=== PATIENT | male | born 1955 | race Caucasian/White ===

== ENCOUNTER 2021-02-20 16:29 | Inpatient (IN) | payer OTHER, SELFPAY ==
[~2021-02-20] VITALS: Ht 180.3 cm; Wt 70.7 kg
[2021-02-20 17:46] LABS: MEAN CORPUSCULAR HEMOGLOBIN 28.9 pg (27.5-34.5); MEAN CORPUSCULAR HGB CONC 34.4 g/dL (33.2-36.2); MEAN PLATELET VOLUME 6.2 fL (7.4-10.4); PLATELET COUNT 67 x10^3/uL (130-400); RED BLOOD COUNT 3.11 x10^6/uL (4.38-5.82); RED CELL DISTRIBUTION WIDTH 15.1 % (9.4-14.8)
--- NOTE | 2021-02-20 17:48 | NUR ---
requested records from [facility]
[2021-02-20 17:56] LABS: ALANINE AMINOTRANSFERASE 19 U/L (12-78); ALBUMIN 3.2 g/dL (3.4-5.0); ANION GAP 7 mmol/L (5-15); CALCIUM 8.3 mg/dL (8.5-10.1); CHLORIDE 109 mmol/L (98-107)
[2021-02-20 17:58] LABS: ALKALINE PHOSPHATASE 88 U/L (45-117); BILIRUBIN,TOTAL 0.4 mg/dL (0.2-1.0); TOTAL PROTEIN 6.7 g/dL (6.4-8.2)
[2021-02-20] MEDS ORDERED: SODIUM CHLORIDE FLUSH 10ML SYR IVF ONE (18:00)
[2021-02-20 18:45] LABS: MICROSCOPIC AUTO
[2021-02-20 18:58] LABS: EOS#(MANUAL) 0.22 x10^3/uL (0.0-0.4); EOS% (MANUAL) 5 % (1-7); LYMPH#(MANUAL) 2.46 x10^3/uL (1-3.4); LYMPHS% (MANUAL) 56 % (22-44); MONOS#(MANUAL) 0.26 x10^3/uL (0.3-2.7); MONOS% (MANUAL) 6 % (2-9); SEG#(MANUAL) 1.45 x10^3/uL (1.8-6.8); SEGS% (MANUAL) 33 % (42-75)
[2021-02-20 18:59] LABS: ANISOCYTOSIS 1+; HYPOCHROMIA 1+
[2021-02-20 19:00] LABS: <PLATELET ESTIMATE> DECREASED
[2021-02-20 19:01] LABS: SMALL PLATELETS 1+
[2021-02-20 20:14] VITALS: BP 121/80
[2021-02-20] MEDS ORDERED: ACET325C6 PO (21:52)
[2021-02-20] MEDS ORDERED: MELATONIN 5 MG TABLET PO PRN (22:00)
[2021-02-20] MEDS ORDERED: ACETAMINOPHEN 325 MG TABLET PO PRN (22:00)
[2021-02-20] MEDS ORDERED: DOCUSATE 100 MG CAPSULE PO PRN (22:00)
[2021-02-20] MEDS: OXYcodone IR 5MG TABLET PO PRN (22:22)
[2021-02-20] MEDS: LACTATED RINGERS 1,000 ML IV SCH (22:22)
[2021-02-21 01:26] VITALS: BP 110/92
[2021-02-21] MEDS ORDERED: ALBU2.5V NEB (04:26)
[2021-02-21 04:34] LABS: MEAN CORPUSCULAR HEMOGLOBIN 28.8 pg (27.5-34.5); MEAN CORPUSCULAR HGB CONC 34.5 g/dL (33.2-36.2); MEAN PLATELET VOLUME 6.1 fL (7.4-10.4); PLATELET COUNT 59 x10^3/uL (130-400); RED BLOOD COUNT 3.05 x10^6/uL (4.38-5.82); RED CELL DISTRIBUTION WIDTH 15.2 % (9.4-14.8)
[2021-02-21] MEDS ORDERED: albuterol IH (04:39)
[2021-02-21 04:41] LABS: ANION GAP 5 mmol/L (5-15); CALCIUM 8.1 mg/dL (8.5-10.1); CHLORIDE 110 mmol/L (98-107); CREATININE 2.09 mg/dL (0.7-1.3)
[2021-02-21] MEDS ORDERED: ALBUTEROL SULFATE 2.5 MG/3 ML NPPB PRN (05:00)
[2021-02-21] MEDS: LACTATED RINGERS 1,000 ML IV SCH ×2 (05:47→15:54)
[2021-02-21 05:53] LABS: EOS#(MANUAL) 0.18 x10^3/uL (0.0-0.4); EOS% (MANUAL) 5 % (1-7); LYMPH#(MANUAL) 2.31 x10^3/uL (1-3.4); LYMPHS% (MANUAL) 66 % (22-44); MONOS#(MANUAL) 0.32 x10^3/uL (0.3-2.7); MONOS% (MANUAL) 9 % (2-9); SEGS% (MANUAL) 20 % (42-75)
[2021-02-21 05:54] LABS: <PLATELET ESTIMATE> DECREASED; ANISOCYTOSIS 1+
[2021-02-21 05:55] LABS: <PLT MORPHOLOGY> NORMAL PLT MORPH
[2021-02-21 06:45] VITALS: BP 129/76
[2021-02-21] MEDS: OXYcodone IR 5MG TABLET PO PRN (07:53)
[2021-02-21] MEDS ORDERED: FENTANYL PF 100 MCG/2ML ONE (09:49)
[2021-02-21] MEDS ORDERED: NALOXONE 1 MG/ML, 2ML ONE (09:50)
[2021-02-21] MEDS ORDERED: MIDAZOLAM 1 MG/ML, 5ML ONE (09:50)
[2021-02-21] MEDS ORDERED: FLUMAZENIL 0.1 MG/1 ML, 5ML ONE (09:50)
[2021-02-21 12:14] VITALS: BP 122/78
[2021-02-21] MEDS ORDERED: ALBUTEROL HFA 90 MCG/SPRAY INH PRN (16:30)
[2021-02-21 18:31] VITALS: BP 149/79
[2021-02-21] MEDS ORDERED: ONDANSETRON 2MG/ML, 2ML IVPush PRN (19:30)
[2021-02-22 00:01] VITALS: BP 127/71
[2021-02-22] MEDS: OXYcodone IR 5MG TABLET PO PRN (00:06)
[2021-02-22 04:44] LABS: BASOPHILS % (AUTO) 0 % (0-1); EOSINOPHILS % (AUTO) 2 % (1-7); LYMPHOCYTES % (AUTO) 61 % (22-44); MEAN CORPUSCULAR HEMOGLOBIN 29.2 pg (27.5-34.5); MEAN CORPUSCULAR HGB CONC 35.2 g/dL (33.2-36.2); MEAN PLATELET VOLUME 6.3 fL (7.4-10.4); MONOCYTES % (AUTO) 7 % (2-9); NEUTROPHILS % (AUTO) 31 % (42-75); PLATELET COUNT 54 x10^3/uL (130-400); RED BLOOD COUNT 2.98 x10^6/uL (4.38-5.82); RED CELL DISTRIBUTION WIDTH 14.9 % (9.4-14.8)
[2021-02-22 04:51] LABS: ALBUMIN 2.8 g/dL (3.4-5.0); ANION GAP 8 mmol/L (5-15); CHLORIDE 110 mmol/L (98-107)
[2021-02-22 04:54] LABS: ALANINE AMINOTRANSFERASE 16 U/L (12-78); ALKALINE PHOSPHATASE 82 U/L (45-117); BILIRUBIN,TOTAL 0.6 mg/dL (0.2-1.0); CREATININE 1.96 mg/dL (0.7-1.3); TOTAL PROTEIN 6.2 g/dL (6.4-8.2)
[2021-02-22 06:30] VITALS: BP 127/70
[2021-02-22] MEDS: LACTATED RINGERS 1,000 ML IV SCH ×2 (07:42)
[2021-02-22] MEDS ORDERED: HEPARIN 5,000 UNITS/ML, 1ML SQ SCH (09:00)
[2021-02-22] MEDS ORDERED: ALLOPURINOL 100 MG TABLET PO SCH (11:00)
[2021-02-22] MEDS ORDERED: ALLO100T30 PO (11:45)
[2021-02-22 12:10] VITALS: BP 144/76
== END 2021-02-22 13:10 | disposition home or self-care (01) | DRG 840 ==
LOC: ED 19:26 → EDIP 19:45 → 4NW 19:58
PROVIDERS: ADMIT Internal Medicine; ATTEND Family Medicine
PROC: 07DR3ZX Extraction of Iliac Bone Marrow, Percutaneous Approach, Diagnostic (ICD-10-PCS; principal; 2021-02-21)
DX: C85.90 Non-Hodgkin lymphoma, unspecified, unspecified site (principal); N17.0 Acute kidney failure with tubular necrosis; D64.9 Anemia, unspecified; D69.6 Thrombocytopenia, unspecified; D70.9 Neutropenia, unspecified; E87.5 Hyperkalemia; F12.90 Cannabis use, unspecified, uncomplicated; J45.909 Unspecified asthma, uncomplicated; R59.1 Generalized enlarged lymph nodes; R16.1 Splenomegaly, not elsewhere classified; N18.9 Chronic kidney disease, unspecified; E79.0 Hyperuricemia without signs of inflammatory arthritis and tophaceous disease; R59.0 Localized enlarged lymph nodes; R31.9 Hematuria, unspecified
CPT/HCPCS: 36415; 38222; 38505; 70490; 71045; 71250; 76770; 76942; 77012; 80048; 80053; 81001; 82306; 83615; 83970; 84100; 84550; 85025; 85060; 85097; 86308; 87086; 88237; 88264; 88280; 88305; 88311; 88313; 99156; 99157; 99285; G0378; J2250; J3010; J2310; J7120